=== PATIENT | male | born 1950 | race Caucasian/White ===

== ENCOUNTER 2019-11-04 06:20 | Outpatient (CLI) | payer MEDICARE ==
[2019-11-04 12:59] LABS: #Basophils 0.1 thou/uL (0.0-0.2); #Eosinphils 0.2 thou/uL (0.0-0.7); #Lymphocytes 1.6 thou/uL (1.20-3.40); %Eosinophils 2.5 % (0.0-10.0); %Lymphocytes 17.9 % (21.0-51.0); %Monocytes 10.8 % (0.0-10.0); %Neutrophils 67.8 % (42.0-75.0); Hemoglobin 16.3 g/dL (14.0-18.0); Mean Corpuscular HGB CONC 32.9 g/dL (32.0-36.0); Mean Corpuscular Hemoglobin 31.9 pg (27.0-31.0); Mean Corpuscular Volume 97.1 fL (78.0-98.0); Mean Platelet Volume 7.5 fL (7.4-10.4); Platelet Count 311 thou/uL (130-400); RBC Distribution Width 12.1 % (11.5-14.5); Red Blood Cell (RBC) Count 5.09 mill/uL (4.70-6.10); White Blood Cell (WBC) Count 8.9 thou/uL (4.8-10.8)
--- NOTE | 2019-11-06 13:37 | EKG ---
Test Reason : Blood Pressure : / mmHG Vent. Rate : 057 BPM Atrial Rate : 057 BPM P-R Int : 144 ms QRS Dur : 092 ms QT Int : 416 ms P-R-T Axes : 072 060 056 degrees QTc Int : 404 ms Sinus bradycardia Minimal voltage criteria for LVH, may be normal variant Borderline ECG No previous ECGs available Confirmed by CHUNG BRIGGS (2) on 11/06/2019 1:37:06 PM Referred By: SINDY Confirmed By:CHUNG BRIGGS
== END 2019-11-04 06:21 | disposition home or self-care (01) ==
LOC: LABBT 06:20
PROVIDERS: ATTEND Orthopaedic Surgery
DX: Z01.818 Encounter for other preprocedural examination (principal); G56.01 Carpal tunnel syndrome, right upper limb; G56.21 Lesion of ulnar nerve, right upper limb
CPT/HCPCS: 85025; 93005; 93010

== ENCOUNTER 2019-11-06 05:42 | Day surgery (SDC) | payer MEDICARE ==
[2019-11-04 10:39] VITALS: BMI 22.6
[2019-11-06] MEDS ORDERED: Lidocaine 1% (PF) 30 ML VIAL ONE (06:27)
[2019-11-06] MEDS ORDERED: Fentanyl 100 MCG/2 ML VIAL ONE (07:32)
[2019-11-06] MEDS ORDERED: Ondansetron PF 4 MG/2 ML Vial ONE (10:15)
[2019-11-06] MEDS ORDERED: PROPOFOL 200 MG/20 ML VIAL ONE (10:15)
[2019-11-06] MEDS ORDERED: Ketorolac Tromethamine 30 MG/ML VIAL ONE (10:15)
[2019-11-06] MEDS ORDERED: Dexamethasone 20 MG/5 ML VIAL ONE (10:15)
[2019-11-06] MEDS ORDERED: ePHEDrine/0.9% NaCl/PF SYRINGE 50 mg/10 ml ONE (10:15)
--- NOTE | 2019-11-07 11:31 | OP ---
DATE OF PROCEDURE: 11/06/2019 PREOPERATIVE DIAGNOSIS: Right carpal and cubital tunnel syndromes. POSTOPERATIVE DIAGNOSIS: Right carpal and cubital tunnel syndromes. PROCEDURES PERFORMED: 1. Right open carpal tunnel release. 2. Right open cubital tunnel release. 3. Placement of long arm splint, right upper extremity. [employer]PERVISOR: None. ESTIMATED BLOOD LOSS: Minimal. COMPLICATIONS: None. ANESTHESIA: The patient did have a general anesthetic. DISPOSITION: He did go to recovery room in stable condition. INDICATIONS: This is a 69-year-old male who has dealt with right hand numbness and tingling and weakness for quite some time and neurologic evaluation found to have both cubital and carpal tunnel syndromes. At this time, he opted for release of both of these. DESCRIPTION OF PROCEDURE: After all appropriate consent forms were explained and signed, he was taken back to the operative room and at this time was given general anesthetic. Once the level of anesthesia was appropriate, a tourniquet was placed on the right arm and the arm was then prepped and draped in standard surgical fashion. At this time, the incision for the carpal tunnel release was gone out and was infiltrated with plain lidocaine. The limb was then exsanguinated, and the tourniquet was taken up to 250 mmHg. Using loupe magnification, a 15 blade was used to incise down through skin. Bipolar cautery was then used to coagulate any brisk venous bleeding. Small hemostat was then placed underneath the transverse carpal ligament to protect the median nerve, and a combination of 15 blade and surgical scissors were used to transect the transverse carpal ligament. The nerve was then evaluated thoroughly and found to be intact with no masses, and the underlying flexor tendons were in good condition. At this time, moist Ray-Juan sponge was placed into the wound and the tourniquet was let down. Bipolar cautery was then used to coagulate any brisk venous bleeding. We then thoroughly irrigated the wound. We then placed multiple interrupted nylon sutures to close the small incision. Bulky sterile soft tissue dressing was placed on the hand. We then turned our attention to the elbow. Again, incision was drawn out for our cubital tunnel release and at this time, the limb was then re-exsanguinated again. The tourniquet was taken up to 250 mmHg once more. Again, loupe magnification was used throughout this procedure. A 10 blade was used to incise down through skin only. Bipolar cautery was then used to clear any brisk venous bleeding. From here, surgical scissors were used to dissect out the ulnar nerve from distally in the first motor branch to proximal up in the brachium. Skin flaps were infiltrated with plain lidocaine for postoperative pain relief. Once we were convinced that there were no more tight bands compressing the nerve, we then placed multiple interrupted Vicryl sutures to close the cubital tunnel tissue, so the nerve could not rollback into this. At this time, we then placed a moist Ray-Juan sponge into the wound and let the tourniquet down. Any brisk bleeding was then coagulated with the bipolar. We then placed 2-0 Vicryl and nylon sutures to close our incision. At this time, a bulky sterile soft tissue dressing was placed to the remaining portion of the right arm. We then placed the Ortho Glass posterior long-arm splint onto the right upper extremity. This was held in 90 degrees until dry. At this time, the patient was then awakened. He was taken to recovery room in stable condition. All counts were correct at the end of the case and he did receive preoperative IV antibiotics. Job ID: [id number]
== END 2019-11-06 12:12 | disposition home or self-care (01) ==
LOC: SDC 05:42
PROVIDERS: ATTEND Orthopaedic Surgery
PROC: 01N50ZZ Release Median Nerve, Open Approach (ICD-10-PCS; principal; 2019-11-06)
PROC: 01N40ZZ Release Ulnar Nerve, Open Approach (ICD-10-PCS; 2019-11-06)
DX: G56.21 Lesion of ulnar nerve, right upper limb (principal); G56.01 Carpal tunnel syndrome, right upper limb; I10 Essential (primary) hypertension; G47.30 Sleep apnea, unspecified; Z79.899 Other long term (current) drug therapy; Z99.89 Dependence on other enabling machines and devices
CPT/HCPCS: J0690; J1100; J1885; J2001; J2405; J2704; J3010